=== PATIENT | male | born 1990 | race Caucasian/White ===

== ENCOUNTER 2019-06-17 18:54 | Emergency (ER) | payer MEDICAID ==
[~2019-06-17] VITALS: Ht 185.4 cm; Wt 83.5 kg
[~2019-06-17 18:54] MED LIST: DOXYCYCLINE
[2019-06-17] MEDS ORDERED: DIPH,PERTUSS(ACELL),TET VAC/PF 0.5 ML IM-VACC ONE (19:30)
--- NOTE | 2019-06-17 19:42 | NUR ---
PT TO ROOM FROM LOBBY AT THIS TIME.
--- NOTE | 2019-06-17 20:03 | NUR ---
FIRST CONTACT WITH PT. PT C/O ABSCESS TO LEFT 3 TOE SINCE 06/07 AND ULCER TO LEFT 4TH FINGER (MORE RECENT, UNKNONWN DATE). PT C/O COUGH/SORE THROAT X 1 YEAR. 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 PT'S AOX4. RESPS EVEN AND UNLABORED. PT REFUSED TO CHANGE AND VS.
--- NOTE | 2019-06-17 20:04 | NUR ---
BG 108 AT THIS TIME. EDMD NOTIFIED.
--- NOTE | 2019-06-17 20:06 | NUR ---
PT REFUSED TDAP.
[2019-06-17 20:21] LABS: BASOPHILS % (AUTO) 1 % (0-1); EOSINOPHILS # (AUTO) 0.39 x10^3/uL (0-0.4); EOSINOPHILS % (AUTO) 4 % (1-7); LYMPHOCYTES # (AUTO) 1.87 x10^3/uL (1-3.4); LYMPHOCYTES % (AUTO) 20 % (22-44); MD NO; MEAN CORPUSCULAR HEMOGLOBIN 32.1 pg (27.5-34.5); MEAN CORPUSCULAR HGB CONC 33.4 g/dL (33.2-36.2); MEAN PLATELET VOLUME 6.6 fL (7.4-10.4); MONOCYTES # (AUTO) 0.77 x10^3/uL (0.2-0.8); MONOCYTES % (AUTO) 8 % (2-9); NEUTROPHILS # (AUTO) 6.01 x10^3/uL (1.8-6.8); NEUTROPHILS % (AUTO) 66 % (42-75); PLATELET COUNT 322 x10^3/uL (130-400); RED BLOOD COUNT 4.15 x10^6/uL (4.38-5.82); RED CELL DISTRIBUTION WIDTH 12.6 % (9.4-14.8)
--- NOTE | 2019-06-17 20:22 | NUR ---
PA AT BEDSIDE TO EVALUATE AT THIS TIME.
[2019-06-17 20:31] LABS: ALBUMIN 3.4 g/dL (3.4-5.0); ANION GAP 6 mmol/L (5-15); CALCIUM 8.9 mg/dL (8.5-10.1); CHLORIDE 109 mmol/L (98-107)
[2019-06-17 20:34] LABS: ALANINE AMINOTRANSFERASE 24 U/L (12-78); ALKALINE PHOSPHATASE 68 U/L (45-117); BILIRUBIN,TOTAL 0.2 mg/dL (0.2-1.0); CREATININE 0.88 mg/dL (0.7-1.3); TOTAL PROTEIN 6.9 g/dL (6.4-8.2)
--- NOTE | 2019-06-17 20:52 | NUR ---
PT REFUSED LAB() AT THIS TIME.
--- NOTE | 2019-06-17 21:05 | NUR ---
EDMD AT BEDSIDE AT THIS TIME.
[2019-06-17] MEDS ORDERED: CEFAZOLIN 1,000 MG ONE (21:39)
--- NOTE | 2019-06-17 21:50 | NUR ---
pt medicated per emar. pt tolerated well.
[2019-06-17] MEDS ORDERED: CEFAZOLIN 1,000 MG IM ONE (22:00)
[2019-06-17 22:04] VITALS: BP 136/88
[2019-06-17] MEDS ORDERED: NEOSPORIN OINT. PKT 1 PACKET ONE (22:17)
--- NOTE | 2019-06-17 22:22 | NUR ---
Jensen spicer in ED - 06/17/19 at 2226 by ASIF PT C/O CARE. PT STATES"YOU RUBINA DIDN'T DO ANY. I NEED TO STAY HERE." TAMIKO/LORRAINE RN EXPLAINED BUT PT STILL C/O CARE. SECURITY PAGED.
--- NOTE | 2019-06-17 22:26 | NUR ---
PT C/O CARE. PT STATES"YOU GUYS DIDN'T DO ANY. I NEED TO STAY HERE." PA/THIS RN EXPLAINED BUT PT STILL C/O CARE. SECURITY PAGED.
--- NOTE | 2019-06-17 22:32 | NUR ---
Patient given discharge instructions and they have confirmed that they understand the instructions. Patient ambulatory with steady gait.
== END 2019-06-17 22:33 | disposition home or self-care (01) ==
LOC: ED 20:10
DX: L03.012 Cellulitis of left finger (principal); L04.1 Acute lymphadenitis of trunk
CPT/HCPCS: 73660; 80053; 82962; 84145; 85025; 96372; 99284; J0690